=== PATIENT | male | born 1965 ===

== ENCOUNTER → 2017-07-06 | Day surgery (SDC) | payer MEDICARE ==
[~2017-07-06] MED LIST: APIDRA (NF100 UNITS/ SUBQ; BAYER CHEWABLE81 MG PO; HCTZ LISINOPRIL SUBQ; LIPITOR40 MG PO; METFORMIN PO; NORVASC10 MG PO; PANTOPRAZOLE SO40 MG; ZESTRIL10 M1 PO
--- NOTE | ~2017-07-06 | OR ---
Unit #: [id number] #: [id number] Patient: RITESH DILL [id number] [address] [address] [id number] O MR#: [id number] NAME: RITESH DILL ROOM: Date of Procedure: 07/06/2017 Admission Date: 07/06/2017 Surgeon: Sharif Owens M.D. : 1965 Attending Physician: Sharif Owens M.D. OPERATIVE REPORT ATTENDING PHYSICIAN Melva Cohn APRN. PREOPERATIVE DIAGNOSES Iron-deficiency anemia. In addition, the patient needs screening for colon cancer if not had one in the past. He also has history of dyspeptic symptoms. PROCEDURES PERFORMED Upper gastrointestinal endoscopy and biopsy as well as colonoscopy with polypectomy. POSTOPERATIVE DIAGNOSES For upper endoscopy: 1. The patient had distal erosive esophagitis with few erosions at the Z-line in the distal esophagus. 2. Mild antral gastritis. This was in the form of erythema. There being no erosions. 3. Rest of the examination up to third part of duodenum was normal. Biopsy was obtained from the antrum for CLOtest. For colonoscopy: 1. A single sessile polyp in the mid ascending colon. This was about a centimeter in size. It was removed using snare cautery polypectomy. 2. Smaller diminutive sessile polyp in the descending colon, removed using cold biopsy forceps. 3. Scant sigmoid and descending colon diverticulosis. 4. Rest of the examination up to cecum and terminal ileum was normal. The quality of prep was excellent. RECOMMENDATIONS 1. The patient is being started on omeprazole 40 mg p.o. daily. 2. We will recheck his iron studies and hemoglobin today. 3. He will be followed up in the office in 3 months' time. 4. He will require a repeat colonoscopy in 5 years. SEDATION USED MAC. DESCRIPTION OF PROCEDURE Following detailed explanation of the potential risks and complications of an upper endoscopy and a colonoscopy, namely perforation, bleeding, and Unit #: [id number] #: [id number] Patient: RITESH DILL complication related to sedation, the patient was brought to GI lab and laid in the left lateral decubitus position. Lubricated tip of the Olympus video upper endoscope was passed through the bite block into the proximal esophagus under direct vision. The entire esophageal mucosa was examined and the patient was noted to have grade 1 distal erosive esophagitis with erosions at the Z-line in the distal esophagus. The scope was then advanced into the gastric cavity and the latter was insufflated. Mucosa of the fundus, body, and antrum was examined and mild diffuse prepyloric antral erythema was noted. Pylorus was intubated with visualization of the normal duodenal bulb and second and third part of the duodenum. Upon withdrawal and retroflexion; incisura, cardia, and greater curve was examined and biopsy was obtained from the antrum for CLOtest. The scope was then withdrawn in the distal esophagus. The entire esophageal mucosa was examined all the way up to pharynx. No additional findings were noted. The examination table was then turned by 180 degrees and the patient positioned for a colonoscopy. A digital rectal examination was performed, which was normal. Lubricated tip of the Olympus video colonoscope was inserted through the anus and advanced under direct vision. The scope was advanced past rectosigmoid into descending colon. Scant small diverticula were noted in this area. The scope tip was then navigated all the way up to cecum with visualization of the ileocecal valve and the appendiceal orifice. Preparation was excellent with good visualization and photodocumentation was obtained. Last few inches of the terminal ileum were also visualized after intubation of the ileocecal valve and appeared normal. Successive segments of the colonic mucosa were examined upon withdrawal. A single sessile polyp about a centimeter in size was noted in the mid ascending colon. The latter was removed using snare polypectomy. It was retrieved and sent for histology. No additional polyps were noted. Other than the scant diverticula seen in the left side, no other abnormalities were found. The patient did not have any hemorrhoids at the anal verge. The scope was then withdrawn and the patient returned to recovery area. He tolerated the procedure without any postprocedure complications. Dictated by... Ellen Lane TD: 07/06/2017 16:58 JOB #: [id number] CC: Melva Cohn M.D. OPERATIVE REPORT Page 1 of 1 X Sharif Owens MD PROCEDURE OPERATIVE NOTE
[2017-07-06 09:38] LABS: BASOPHIL% 0.8 % (0-2.5); EOSINOPHIL# 0.1 X10e3 (0-0.7); EOSINOPHIL% 1.2 % (0.0-7.0); HEMOGLOBIN 10.9 gm/dL (13.0-16.0); LYMPHOCYTE# 1.1 X10e3 (1.0-3.5); LYMPHOCYTE% 18.5 % (17.0-45.0); MEAN CELL VOLUME 88.2 FL (83-96); MEAN CORPUSCULAR HEMOGLOBIN 30.1 PG (28-34); MEAN CORPUSCULAR HGB CONC 34.2 g/dL (30-36); MEAN PLATELET VOLUME 8.6 FL (6.5-11.5); MONOCYTE# 0.5 X10e3 (0-1.0); MONOCYTE% 8.1 % (3.0-12.0); NEUTROPHIL# 4.4 X10e3 (1.5-7.1); NEUTROPHIL% 71.4 % (40-75); PLATELET COUNT 223 X10e3 (140-420); RED BLOOD COUNT 3.63 X10e (3.90-5.60); RED CELL DISTRIBUTION WIDTH 13.4 % (11.0-15.5); WHITE BLOOD COUNT 6.2 X10e3 (4.0-10.5)
[2017-07-06 09:48] LABS: DIFF IND NO
[2017-07-06 10:28] LABS: CALCIUM SERUM 9.2 mg/dL (8.4-10.2); GLOM FILT RATE Estimated 86.8 mL/min (>60)
== END | disposition home or self-care (01) ==
LOC: COPS 06:54
PROVIDERS: Internal Medicine Gastroenterology
DX: D12.4 Benign neoplasm of descending colon (principal); K29.80 Duodenitis without bleeding; K63.5 Polyp of colon; K22.10 Ulcer of esophagus without bleeding; K57.30 Diverticulosis of large intestine without perforation or abscess without bleeding; D50.9 Iron deficiency anemia, unspecified; E11.9 Type 2 diabetes mellitus without complications; I10 Essential (primary) hypertension; Z79.84 Long term (current) use of oral hypoglycemic drugs; Z79.82 Long term (current) use of aspirin; Z79.899 Other long term (current) drug therapy; Z98.41 Cataract extraction status, right eye
CPT/HCPCS: 80048; 82728; 82947; 83540; 83550; 85025; 87077; 88305; J2250